=== PATIENT | female | born 1990 | race Caucasian/White ===

== ENCOUNTER 2017-04-08 03:50 | Inpatient (IN) | payer OTHER ==
[~2017-04-08] VITALS: Ht 160 cm; Wt 72.6 kg
[2017-04-08] VITALS (13 sets, daily range): BP systolic 109–134; BP diastolic 61–80; PULSE 82–105; RESP 18; TEMP 97.9; O2SAT 100
--- NOTE | 2017-04-08 04:49 | PD ---
HPI Chief Complaint Contractions Date Seen: Apr 08, 2017 Time Seen: 04:30 Travel History International Travel<30 Days: No Contact w/Intl Traveler<30Days: No Known Affected Area: No History of Present Illness HPI 26-year-old white female at [address] Do for care as scheduled for induction later this evening approximately 16 hours from now, she presents complaining of contraction pains worsening, heart rate is within normal range and has good variability however has not been reactive at this time , she is joyce irregularly Weeks Gestation: 40 Para: 0 : 1 History Social History Alcohol Use: No Tobacco Use: No Substance Abuse: No Review of Systems General / Constitutional: No: Fever, Weight Gain, Chills, Other Eyes: No: Diploplia, Blurred Vision, Visual changes, Pain, Photophobia HENT: No: Headaches, Vertigo, Lightheadedness Cardiovascular: No: Irregular Rhythm, Chest Pain or Discomfort, Palpitations, Tachycardia, Syncope, Varicosities, Edema, Cyanosis Respiratory: No: Cough, Short of Breath, Other Gastrointestinal: Abdominal Pain, No: Nausea, Vomiting, Diarrhea Genitourinary: No: Decreased Urinary Output, Oliguria Musculoskeletal: No: Limited ROM, Weakness, Cramping, Edema, Pain Skin: No Rash, No Itching, No Dryness, No Lumps, No Change in Pigmentation, No Change in Nails, No Alopecia, No Lesions Neurologic: No: Weakness, Dizziness, Syncope, Focal Abnormalities, Coordination Problem, Headache, Slurred Speech, Seizures Psychiatric: No: Depression, Suicidal Ideations, Homicidal Ideation Endocrine: No: Heat Intolerance, Cold Intolerance, Polydipsia, Polyuria, Other Physical Exam Narrative GENERAL: Well-nourished, well-developed patient. SKIN: Warm and dry. HEAD: Normocephalic and atraumatic. EYES: No scleral icterus. No injection or drainage. ENT: No nasal drainage noted. Mucous membranes pink. Airway patent. NECK: Supple, trachea midline. No JVD. CARDIOVASCULAR: Regular rate and rhythm without murmurs, gallops, or rubs. RESPIRATORY: Breath sounds equal bilaterally. No accessory muscle use. BREASTS: Bilateral exam showed no masses , no retractions, no nipple discharge. ABDOMEN/GI: Abdomen soft, non-tender, bowel sounds present, no rebound, no guarding Gravid to [40-] weeks size Fundal Height: [-40] GENITOURINARY: External Genitalia: intact and normal in appearance BUS glands: [-] Cervix: [-] Dilatation: [1-] Effacement: [-80] Station: [-3] Presentation: [vtx-] Membranes: [intact ] Uterine Contractions: [irreg-] FHT's: Category: [1-] Baseline: [-130] Reactive: [NR-] Variability: [-mod] Decels: [none-] EXTREMITIES: No cyanosis or edema. BACK: Nontender without obvious deformity. No CVA tenderness. NEUROLOGICAL: Awake and alert. Motor and sensory grossly within normal limits. Five out of 5 muscle strength in all muscle groups. Normal speech. MDM Interpretation(s) Patient is 26-year-old white female at [address] Do for care presents complaining of contraction pain. She is scheduled for induction approximately 16 hours she supposed to be back here for that process to begin however she's early started joyce has pain from this point. Heart rate is within normal limits and has moderate variability however is not classically reactive at this time no good accelerations contractions are irregular Plan The monitor the patient and the strip that continues to be nonreactive we will admit and plan to begin her augmentation/induction a little bit early Diagnosis Diagnosis: Primary Impression: Uterine contractions during Disposition: 01 DISCHARGE HOME Condition: Stable Darrion Marsh II, MD Apr 08, 2017 04:49
--- NOTE | 2017-04-08 13:03 | MH ---
cc: SADIA CORDERO M.D. DATE OF ADMISSION 04/08/2017 DATE OF 1990 REASON FOR ADMISSION The patient is a 41-week intrauterine gestation primigravida for induction of labor. HISTORY The patient is a 26-year-old female 1, para 0, last menstrual period was June 28, 2016. Estimated date of confinement April 04, 2017 confirmed by early first trimester ultrasound. On August 26, 2016, baby measured 8 weeks and 2 days. The patient has an uncomplicated course notable for history of group B Strep positive, otherwise no significant complications during the . PAST MEDICAL HISTORY Denies any systemic or chronic disease states. FAMILY HISTORY Noncontributory ALLERGIES She has no known drug allergies. CURRENT MEDICATIONS Include vitamins daily. OBSTETRICAL HISTORY The patient's blood type is A+, Glucola screen was normal. Recent hemoglobin was 31.1. The patient declined any genetic screening during this . SOCIAL HISTORY The patient is . She is a teacher. Denies the use of alcohol, tobacco or illicit substances. PHYSICAL EXAMINATION The patient is well-appearing well-nourished female in no acute distress. VITAL SIGNS: Stable. Blood pressures 120/66, heart tones are in the 150's. HEAD, EYES, EARS, NOSE, AND THROAT: Shows no adenopathy or thyromegaly. LUNGS: The lungs were clear in all yeager. CARDIAC: Regular rate and rhythm without murmur. ABDOMEN: Gravid, full-term, 41-week fundus. PELVIC: Adequate, cervix was long and soft, mid position and fingertip on the recent exam. EXTREMITIES: The patient's extremities were symmetrical with a full range of motion. There is no cyanosis, clubbing or edema. NEUROLOGIC: Exam is grossly intact, nonfocal. ASSESSMENT AND PLAN The patient is 41 weeks intrauterine gestation with good dates and normal care, history of group B Strep positive, estimated weight is approximately 8 pounds. The patient has elected for induction of labor post dates. She is to be brought in for use of Cervidil overnight and reassessment in the morning. MD DELGADO Chawla/KYRA /12:39 PM :50 PM
[2017-04-08] MEDS ORDERED: DINOPROSTONE 10 MG VAG INSERT VAGINAL ONE (19:00)
[2017-04-08] MEDS ORDERED: SODIUM CHLORIDE 0.9% FLUSH 10 ML FLUSH IV FLUSH PRN (19:00)
[2017-04-08] MEDS: LACTATED RINGER'S 1000 ML IV SCH ×2 (19:09→21:47)
[2017-04-08] MEDS ORDERED: OXYTOCIN 30 UNITS 500ML PREMIX IV ONE (19:30)
[2017-04-08] MEDS ORDERED: LIDOCAINE HCL 1% 50 ML VIAL INFIL PRN (19:30)
[2017-04-08] MEDS ORDERED: MINERAL OIL 10 ML VIAL TOPICAL PRN (19:30)
[2017-04-08] MEDS ORDERED: NS 1000 ML IV PRN (19:45)
[2017-04-08] MEDS ORDERED: PENICILLIN G POT 5,000,000 UNITS/NS 100 ML (Mini-Bag Plus) IV ONE ×2 (19:45)
[2017-04-08] MEDS ORDERED: CITRIC ACID-SODIUM CITRATE LIQ 30 ML UDC PO SCH (19:45)
[2017-04-08] MEDS ORDERED: LIDOCAINE HCL 1% 50 ML VIAL I-DERMAL PRN (19:45)
[2017-04-08] MEDS ORDERED: LACTATED RINGER'S 1000 ML BOLUS IV PRN (19:45)
[2017-04-08] MEDS ORDERED: NS 500 ML BOLUS IV PRN (19:45)
[2017-04-08] MEDS ORDERED: SODIUM CHLORIDE 0.9% FLUSH 10 ML FLUSH IV FLUSH SCH (21:00)
[2017-04-08] MEDS ORDERED: ONDANSETRON HCL 4 MG/2 ML VIAL ONE (21:13)
[2017-04-08] MEDS: ONDANSETRON HCL 4 MG/2 ML VIAL IV PUSH PRN (21:15)
[2017-04-08] MEDS ORDERED: fentaNYL 2MCG-BUPIV 0.125% INJ 100 ML ONE (21:19)
[2017-04-08 21:35] LABS: AUTOMATED NEUTROPHIL # 10.3 TH/MM3 (1.8-7.7); BASOPHIL % 0.2 % (0.0-2.0); HEMATOCRIT 29.4 % (35.0-46.0); HEMO FLAGS DIFF FINAL; LYMPH % 12.3 % (9.0-44.0); LYMPHOCYTE # 1.5 TH/MM3 (1.0-4.8); MEAN CELL VOLUME 69.3 FL (80.0-100.0); MEAN CORPUSCULAR HEMOGLOBIN 21.8 PG (27.0-34.0); MEAN CORPUSCULAR HGB CONC 31.5 % (32.0-36.0); MONO % 3.4 % (0.0-8.0); NEUT % 84.1 % (16.0-70.0); PLATELET COUNT 169 TH/MM3 (150-450); RED BLOOD COUNT 4.24 MIL/MM3 (4.00-5.30); RED CELL DISTRIBUTION WIDTH 17.5 % (11.6-17.2); WHITE BLOOD COUNT 12.3 TH/MM3 (4.0-11.0)
[2017-04-08 21:38] LABS: BLOOD, URINE TRACE (NEG); COMMENT (UR) CULT NOT INDICATED; CULTURE IF INDICATED CULT NOT INDICATED; GLUCOSE,URINE NEG (NEG); KETONE, URINE 40 mg/dL (NEG); NITRITE,URINE NEG (NEG); PH, URINE 5.5 (5.0-8.5); SQUAMOUS EPITHELIAL CELL URINE 1 /hpf (0-5); URINE COLOR YELLOW (YELLW/STRAW)
[2017-04-08] MEDS ORDERED: NO SYSTEM NARCOTICS PRN (21:45)
[2017-04-08] MEDS ORDERED: DO NOT ADMINISTER ANTICOAGULANTS PRN (21:45)
[2017-04-08] MEDS: fentaNYL 2MCG-BUPIV 0.125% 100 ML EPIDURAL SCH (22:11)
[2017-04-08] MEDS ORDERED: ePHEDrine/NS 25 MG/5 ML SYR IV PUSH PRN (22:15)
[2017-04-09] VITALS (20 sets, daily range): BP systolic 119–145; BP diastolic 55–92; PULSE 73–105; RESP 14–20; TEMP 97.6–98.2
[2017-04-09] MEDS ORDERED: PENICILLIN G POT 2,500,000 UNITS/NS 100 ML IV SCH ×2
[2017-04-09] MEDS: ONDANSETRON HCL 4 MG/2 ML VIAL IV PUSH PRN (04:51)
[2017-04-09] MEDS: fentaNYL 2MCG-BUPIV 0.125% 100 ML EPIDURAL SCH (04:57)
[2017-04-09] MEDS ORDERED: OXYTOCIN 30 UNITS-500ML PREMIX 500 ML ONE (06:10)
[2017-04-09] MEDS: LACTATED RINGER'S 1000 ML IV SCH (06:44)
--- NOTE | 2017-04-09 08:59 | PD.OB.DELI ---
Weeks gestation: 41 Gest age assessed date: Apr 08, 2017 Gest age assessed time: 15:00 Pt started active labor?: Yes Medical induction of labor?: Yes Artificial rupture of membrane: No Anesthesia: Epidural Episiotomy: None Vaginal Delivery: Normal Presentation: Occiput anterior Nuchal Cord: x1 (clamped and cut ) Delayed cord clamping (45 sec): No Infant: Female Delivery date: Apr 09, 2017 Delivery time: 00:00 One Minute : 8 Five Minute : 9 Weight: 7/12 Placenta: Spontaneous delivery Laceration: Vaginal laceration, 2 deg Repair: Vicryl interrupted (2-0), Vicryl running (3-0) Estimated blood loss: <250 cc Corey Do MD Apr 09, 2017 08:59
[2017-04-09] MEDS ORDERED: SODIUM CHLORIDE 0.9% FLUSH 10 ML FLUSH IV FLUSH SCH (09:00)
[2017-04-09] MEDS ORDERED: ONDANSETRON ODT 4 MG TAB PO PRN (09:00)
[2017-04-09] MEDS ORDERED: WITCH HAZEL 50%/GLYCERIN 12.5% 40 PAD JAR TOPICAL PRN (09:00)
[2017-04-09] MEDS ORDERED: ACETAMINOPHEN 325 MG TAB PO PRN (09:00)
[2017-04-09] MEDS ORDERED: BENZOCAINE 20% TOPICAL SPRAY 60 ML CAN TOPICAL PRN (09:00)
[2017-04-09] MEDS ORDERED: OXYTOCIN 10 UNIT/ML AMP XX PRN (09:00)
[2017-04-09] MEDS ORDERED: SODIUM CHLORIDE 0.9% FLUSH 10 ML FLUSH IV FLUSH PRN (09:00)
[2017-04-09] MEDS ORDERED: ALUMINUM/MAGNESIUM/SIMETH 30 ML CUP PO PRN (09:00)
[2017-04-09] MEDS ORDERED: DOCUSATE SODIUM 50 MG/SENNA 8.6 MG TAB PO PRN (09:00)
[2017-04-09] MEDS ORDERED: OXYTOCIN 30 UNITS-500ML PREMIX 500 ML IV SCH (12:00)
[2017-04-09] MEDS ORDERED: MEASLES, MUMPS, RUBELLA VACCINE 0.5 ML VIAL SQ ONE (16:00)
[2017-04-09] MEDS ORDERED: DIPHTH/TETANUS/ACEL PERTUSSIS (BOOSTER) 0.5 ML VIAL/PFS IM ONE (16:00)
[2017-04-09] MEDS: IBUPROFEN 600 MG TAB PO PRN ×2 (16:15→23:58)
[2017-04-09] MEDS ORDERED: ZOLPIDEM TARTRATE 5 MG TAB PO PRN (21:00)
[2017-04-10] MEDS: IBUPROFEN 600 MG TAB PO PRN ×3 (06:02→19:58)
[2017-04-10] MEDS ORDERED: IBUP-232 PO (06:39)
[2017-04-10] MEDS ORDERED: SENN1TAB PO (06:39)
--- NOTE | 2017-04-10 06:39 | HHI.DCPOC ---
Discharge Care Plan Diagnosis: (1) (spontaneous vaginal delivery) Your Health Problems Are: Vaginal delivery Report Symptoms to Your Doctor -Temperature above 100.5 degrees -Redness, of incision or excessive or foul smelling drainage -Unusual pain or calf pain -Increased vaginal bleeding -Painful or difficulty urinating -Feelings of extreme sadness or anxiety after 2 weeks Goals to Promote Your Health * To prevent worsening of your condition and complications * To maintain your health at the optimal level Directions to Meet Your Goals Take your medications as prescribed Follow your dietary instruction Follow activity as directed Ensure plenty of rest for recovery Drink fluids for hydration Keep your appointments as scheduled Take your immunizations and boosters as scheduled If your symptoms worsen call your PCP, if no PCP go to Urgent Care Center or Emergency Room Smoking is Dangerous to Your Health. Avoid second hand smoke Call the 24-hour crisis hotline for domestic abuse at Azucena Roca MD Apr 10, 2017 06:39
--- NOTE | 2017-04-10 06:47 | HHI.OB ---
Subjective Post Day: 1 Remarks s/p uncomplicated FT of healthy female Objective Vitals/I&O Vital Signs Date Time Temp Pulse Resp B/P (MAP) Pulse Ox O2 Delivery O2 Flow Rate FiO2 04/09/17 20:00 98.0 79 16 124/72 (89) 04/09/17 11:10 97.6 04/09/17 11:10 73 18 125/80 (95) 04/09/17 10:30 85 130/60 (83) 04/09/17 10:15 88 123/79 (94) 04/09/17 10:00 87 122/61 (81) 04/09/17 09:52 14 04/09/17 09:45 76 130/68 (88) 04/09/17 09:28 14 04/09/17 09:15 98.2 95 121/69 (86) 04/09/17 08:53 91 119/73 (88) 04/09/17 08:01 96 127/74 (91) 04/09/17 07:02 20 Objective Remarks GENERAL: Well-nourished, well-developed patient. CARDIOVASCULAR: Regular rate and rhythm without murmurs, gallops, or rubs. RESPIRATORY: Breath sounds equal bilaterally. No accessory muscle use. ABDOMEN/GI: Abdomen soft, non-tender. Fundus: Firm, non-tender at umbilicus. GENITOURINARY: Light to moderate bleeding. EXTREMITIES: No cyanosis or edema, non-tender, without signs of DVT. Medications and IVs Current Medications Medications (Trade) Dose Ordered Sig/Lolis Route Start Time Stop Time Status Last Admin (NS Flush) 2 ml BID IV FLUSH 04/08/17 21:00 (NS Flush) 2 ml UNSCH PRN IV FLUSH 04/08/17 19:00 Lactated Ringer's 1,000 ml @ 125 mls/hr Q8H IV 04/08/17 19:45 04/09/17 06:44 Lactated Ringer's 1,000 ml @ 3,000 mls/hr BOLUS PRN IV 04/08/17 19:45 Sodium Chloride 500 ml @ 1,000 mls/hr BOLUS PRN IV 04/08/17 19:45 Sodium Chloride 1,000 ml @ 100 mls/hr Q10H PRN IV 04/08/17 19:45 (Bicitra Liq) 30 ml [employer] PO 04/08/17 19:45 04/11/17 19:44 (fentaNYL INJ) 50 mcg Q1H PRN IV PUSH 04/08/17 19:30 04/08/17 19:39 (fentaNYL INJ) 100 mcg Q1H PRN IV PUSH 04/08/17 19:30 Penicillin G Potassium [id number] units/Sodium Chloride 100 ml @ 200 mls/hr Q4H IV 04/09/17 00:00 04/09/17 06:55 (Muri-Lube Oil) 10 ml UNSCH PRN TOPICAL 04/08/17 19:30 04/09/17 07:06 (Zofran Inj) 4 mg Q4H PRN IV PUSH 04/08/17 21:30 04/09/17 04:51 Fentanyl/ Bupivacaine HCl 100 ml @ 10 mls/hr TITRATE EPIDURAL 04/08/17 21:45 04/09/17 04:57 (Pitocin Inj) 20 units UNSCH X1 PRN XX 04/09/17 09:00 04/10/17 08:59 (Tylenol) 650 mg Q4H PRN PO 04/09/17 09:00 (Motrin) 600 mg Q6H PRN PO 04/09/17 09:00 04/10/17 06:02 (Americaine 20% Top Spr) 1 spray Q4H PRN TOPICAL 04/09/17 09:00 (Tucks Pads) 1 applic QID PRN TOPICAL 04/09/17 09:00 (Ramona-Colace) 2 tab Q12H PRN PO 04/09/17 09:00 04/09/17 16:15 (Ambien) 5 mg HS PRN PO 04/09/17 21:00 (Mag-Al Plus Susp Liq) 15 ml Q8H PRN PO 04/09/17 09:00 (Zofran Odt) 4 mg Q6H PRN PO 04/09/17 09:00 Assessment/Plan Problem List: (1) (spontaneous vaginal delivery) ICD Codes: O80 - Encounter for full-term uncomplicated delivery Status: Acute Assessment and Plan PPD#1 routine supportive care support routine d/c planning office f/u 6 wks Discharge Planning routine Azucena Roca MD Apr 10, 2017 06:47
[2017-04-11 08:03] VITALS: BP 121/70; PULSE 72; RESP 16; TEMP 97.3
--- NOTE | 2017-04-11 08:27 | HHI.OB ---
Subjective Post Day: 2 Remarks doing well nursing first child Objective Objective Remarks GENERAL: Well-nourished, well-developed patient. CARDIOVASCULAR: Regular rate and rhythm without murmurs, gallops, or rubs. RESPIRATORY: Breath sounds equal bilaterally. No accessory muscle use. ABDOMEN/GI: Abdomen soft, non-tender. Fundus: Firm, non-tender at umbilicus. GENITOURINARY: Light to moderate bleeding. EXTREMITIES: No cyanosis or edema, non-tender, without signs of DVT. Medications and IVs Current Medications Medications (Trade) Dose Ordered Sig/Lolis Route Start Time Stop Time Status Last Admin (NS Flush) 2 ml BID IV FLUSH 04/08/17 21:00 (NS Flush) 2 ml UNSCH PRN IV FLUSH 04/08/17 19:00 Lactated Ringer's 1,000 ml @ 125 mls/hr Q8H IV 04/08/17 19:45 04/09/17 06:44 Lactated Ringer's 1,000 ml @ 3,000 mls/hr BOLUS PRN IV 04/08/17 19:45 Sodium Chloride 500 ml @ 1,000 mls/hr BOLUS PRN IV 04/08/17 19:45 Sodium Chloride 1,000 ml @ 100 mls/hr Q10H PRN IV 04/08/17 19:45 (Bicitra Liq) 30 ml DAIRY ASSOCIATE PO 04/08/17 19:45 04/11/17 19:44 (fentaNYL INJ) 50 mcg Q1H PRN IV PUSH 04/08/17 19:30 04/08/17 19:39 (fentaNYL INJ) 100 mcg Q1H PRN IV PUSH 04/08/17 19:30 Penicillin G Potassium [id number] units/Sodium Chloride 100 ml @ 200 mls/hr Q4H IV 04/09/17 00:00 04/09/17 06:55 (Muri-Lube Oil) 10 ml UNSCH PRN TOPICAL 04/08/17 19:30 04/09/17 07:06 (Zofran Inj) 4 mg Q4H PRN IV PUSH 04/08/17 21:30 04/09/17 04:51 Fentanyl/ Bupivacaine HCl 100 ml @ 10 mls/hr TITRATE EPIDURAL 04/08/17 21:45 04/09/17 04:57 (Tylenol) 650 mg Q4H PRN PO 04/09/17 09:00 (Motrin) 600 mg Q6H PRN PO 04/09/17 09:00 04/10/17 19:58 (Americaine 20% Top Spr) 1 spray Q4H PRN TOPICAL 04/09/17 09:00 (Tucks Pads) 1 applic QID PRN TOPICAL 04/09/17 09:00 (Ramona-Colace) 2 tab Q12H PRN PO 04/09/17 09:00 04/09/17 16:15 (Ambien) 5 mg HS PRN PO 04/09/17 21:00 (Mag-Al Plus Susp Liq) 15 ml Q8H PRN PO 04/09/17 09:00 (Zofran Odt) 4 mg Q6H PRN PO 04/09/17 09:00 Assessment/Plan Problem List: (1) (spontaneous vaginal delivery) ICD Codes: O80 - Encounter for full-term uncomplicated delivery Status: Acute Assessment and Plan PPD#1 routine supportive care support routine d/c planning office f/u 6 wks PPD 2 doing well home RTO 2 weeks Discharge Planning routine Lo Cardoso MD Apr 11, 2017 08:27
== END 2017-04-11 12:41 | disposition home or self-care (01) | DRG 775 ==
LOC: HOBED 03:50 → H2EB 18:26 → H1EA 04-09 11:02
PROVIDERS: ADMIT Obstetrics & Gynecology; ATTEND Obstetrics & Gynecology
PROC: 3E0P7VZ Introduction of Hormone into Female Reproductive, Via Natural or Artificial Opening (ICD-10-PCS; 2017-04-08)
PROC: 00HU33Z Insertion of Infusion Device into Spinal Canal, Percutaneous Approach (ICD-10-PCS; 2017-04-08)
PROC: 3E0R3BZ Introduction of Anesthetic Agent into Spinal Canal, Percutaneous Approach (ICD-10-PCS; 2017-04-08)
PROC: 10E0XZZ Delivery of Products of Conception, External Approach (ICD-10-PCS; principal; 2017-04-09)
PROC: 0UQGXZZ Repair Vagina, External Approach (ICD-10-PCS; 2017-04-09)
DX: O48.0 Post-term pregnancy (principal); O71.4 Obstetric high vaginal laceration alone; O99.824 Streptococcus B carrier state complicating childbirth; O69.81X0 Labor and delivery complicated by cord around neck, without compression, not applicable or unspecified; Z37.0 Single live birth; Z3A.41 41 weeks gestation of pregnancy
CPT/HCPCS: 81001; 85025; 86900; 86901; 90715; J2405; J2540; J2590; J3010; J7120